=== PATIENT | male | born 1965 | race Caucasian/White ===

== ENCOUNTER 2023-08-03 12:16 | Emergency (ER) | payer BC, MEDICAID ==
[~2023-08-03] VITALS: Ht 180.3 cm; Wt 102.1 kg
[2023-08-03 12:23] VITALS: BP_SYST 156; PULSE 89; RESP 18; TEMP 98.2; O2SAT 97
[2023-08-03 12:34] VITALS: BP_SYST 156; PULSE 89; RESP 18; TEMP 98.2; O2SAT 97
== END 2023-08-03 12:34 ==
LOC: SED 12:16
DX: Z02.89 Encounter for other administrative examinations (principal); Z98.890 Other specified postprocedural states
CPT/HCPCS: 99283